=== PATIENT | female | born 1995 | race Two or more races ===

== ENCOUNTER 2019-05-04 15:21 | Emergency (ER) | payer MEDICAID ==
[~2019-05-04] VITALS: Ht 149.9 cm; Wt 62.1 kg
[~2019-05-04 15:21] MED LIST: NORPTMEDS CO
[2019-05-04 16:22] VITALS: BP 108/73
[2019-05-04 16:22] LABS: Alcohol, Urine < 3.0 mg/dL (0-5); Amphetamine Screen, Urine NEGATIVE (NEGATIVE); Barbiturate Scree,Urine NEGATIVE (NEGATIVE); Benzodiazephine Screen, Urine NEGATIVE (NEGATIVE); Cannabinoid Screen, Urine NEGATIVE (NEGATIVE); Cocaine Screen, Urine NEGATIVE (NEGATIVE); Opiate Scree,Urine NEGATIVE (NEGATIVE); Phencyclidine Screen, Urine NEGATIVE (NEGATIVE)
[2019-05-05 18:40] LABS: Hepatitis A Ab IgM Negative
[2019-05-05 18:48] LABS: Hepatitis B Surface Antigen Negative (Negative)
[2019-05-05 18:54] LABS: Hepatitis B Core IgM Negative
[2019-05-05 19:11] LABS: Hepatitis C Antibody Negative (Negative)
== END 2019-05-04 16:49 | disposition home or self-care (01) ==
LOC: ER 15:32
DX: Z00.00 Encounter for general adult medical examination without abnormal findings (principal)
CPT/HCPCS: 36415; 80074; 80307; 86703